=== PATIENT | male | born 1995 | race Caucasian/White ===

== ENCOUNTER → 2016-08-21 | Outpatient (CLI) | payer OTHER ==
--- NOTE | 2016-08-24 11:20 | CPEEG ---
[f rep st] ELECTROENCEPHALOGRAM ELECTROENCEPHALOGRAM. DATE OF STUDY: 08/21/2016 DATE OF INTERPRETATION: 08/24/2016. INTERPRETATION: Normal EEG during wakefulness and partial sleep. There were no potentially epilept ogenic abnormalities present during the recording. REPORT: This EEG contains 10 Hz alpha activity to the posterior head regions. There was no abnorma l activation at rest, during photic stimulation, or hyperventilation. The patient had a normal hype rventilation build-up response with hyperventilation. The background activity was symmetric. The p atient became drowsy and intermittently fell into light sleep during the study. There was no abnorm al activation during drowsiness, light sleep, or during times of arousal. /[id number]/MODL
== END ==
LOC: FCPNEURO 10:48
PROVIDERS: ATTEND Psychiatry & Neurology Psychiatry
DX: Z13.89 Encounter for screening for other disorder (principal)